=== PATIENT | female | born 1980 | race Caucasian/White ===

== ENCOUNTER → 2016-11-26 | Outpatient (CLI) | payer MEDICAID, OTHER ==
[~2016-11-26] MED LIST: ALBU17IN INH; FLAG500T PO; IBUPOTC PO; LEVA500T PO; TYLE325T5 PO
[2016-11-26 10:38] LABS: BASO # 0.1 K/mm3 (0.0-0.2); BASO % 0.9 % (0.0-1.0); EOS # 0.3 K/mm3 (0.0-0.50); EOS % 3.2 % (0.0-3.0); LARGE UNSTAINED CELL # 0.1 K/mm3 (0.0-0.4); LARGE UNSTAINED CELL % 1.5 % (0.0-4.0); LYMPH # 2.9 K/mm3 (1.5-4.5); LYMPH % 31.6 % (24.0-44.0); MEAN CORPUSCULAR HEMOGLOBIN 29.6 pg (27.0-33.0); MEAN CORPUSCULAR HGB CONC 34.6 g/dl (32.0-36.5); MEAN CORPUSCULAR VOLUME 85.5 fl (80.0-96.0); MONO # 0.4 K/mm3 (0.0-0.8); MONO % 4.7 % (0.0-5.0); NEUTROPHILS # 5.3 K/mm3 (1.8-7.7); NEUTROPHILS % 58.1 % (36.0-66.0); PLATELET COUNT, AUTOMATED 265 k/mm3 (150-450); WHITE BLOOD COUNT 9.1 K/mm3 (4.0-10.0)
--- NOTE | 2016-11-26 10:50 | REP ---
Clinical: Pain. Technique: AP and frog lateral views of the right and left hip. Findings: Bilateral hips are normal and symmetric. No acute fracture or dislocation. No overt osteoarthritic degenerative changes. Impression: Normal, symmetric bilateral hip radiographs Signed by Jorge Luis Bueno MD 11/26/2016 10:42 A
[2016-11-26 11:30] LABS: ALBUMIN 3.8 GM/DL (3.2-5.2); ALBUMIN/GLOBULIN RATIO 1.23 (1.00-1.93); ALKALINE PHOSPHATASE 43 U/L (45-117); ALT/SGPT 17 U/L (12-78); ANION GAP 9 MEQ/L (8-16); AST/SGOT 13 U/L (15-37); BILIRUBIN,TOTAL 0.5 MG/DL (0.2-1.0); BLOOD UREA NITROGEN 8 MG/DL (7-18); CALCIUM LEVEL 8.7 MG/DL (8.5-10.1); CARBON DIOXIDE LEVEL 25 MEQ/L (21-32); CHLORIDE LEVEL 107 MEQ/L (98-107); CHOLESTEROL LEVEL 164 MG/DL (<200); CREATININE FOR GFR 0.63 MG/DL (0.55-1.02); GLOMERULAR FILTRATION RATE > 60.0 (>60); GLUCOSE, FASTING 94 MG/DL (70-105); POTASSIUM SERUM 4.5 MEQ/L (3.5-5.1); SODIUM LEVEL 141 MEQ/L (136-145); TOTAL PROTEIN 6.9 GM/DL (6.4-8.2); TRIGLYCERIDES LEVEL 72 MG/DL (<150)
== END ==
LOC: M LAB 10:04
PROVIDERS: ATTEND Family Medicine Addiction Medicine
DX: Z00.00 Encounter for general adult medical examination without abnormal findings (principal); M25.551 Pain in right hip; M25.552 Pain in left hip

== ENCOUNTER 2017-02-11 10:57 | Emergency (ER) | payer OTHER ==
[~2017-02-11] VITALS: Ht 149.9 cm; Wt 95.3 kg
[2017-02-11 12:13] VITALS: BP 125/81
--- NOTE | 2017-02-11 12:26 | REP ---
RIGHT FIFTH DIGIT: Four views of the right 5th digit are performed and demonstrate no fracture, dislocation or intrinsic bone disease. IMPRESSION: No fracture or dislocation. Signed by Raúl García MD 02/11/2017 04:51 P
== END 2017-02-11 12:13 | disposition home or self-care (01) ==
LOC: M ED 11:35
DX: S60.051A Contusion of right little finger without damage to nail, initial encounter (principal); W23.1XXA Caught, crushed, jammed, or pinched between stationary objects, initial encounter; Y92.019 Unspecified place in single-family (private) house as the place of occurrence of the external cause; Y93.89 Activity, other specified; Y99.9 Unspecified external cause status; J44.9 Chronic obstructive pulmonary disease, unspecified; F17.200 Nicotine dependence, unspecified, uncomplicated; Z90.49 Acquired absence of other specified parts of digestive tract; Z91.040 Latex allergy status

== ENCOUNTER → 2017-02-11 | Outpatient (CLI) | payer OTHER ==
--- NOTE | 2017-02-12 13:56 | ECGEPIP ---
Stationary ECG Study 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
== END ==
LOC: M EKG 10:36
PROVIDERS: ATTEND Family Medicine Addiction Medicine
DX: R42 Dizziness and giddiness (principal)

== ENCOUNTER 2017-02-21 09:05 | Emergency (ER) | payer OTHER ==
[~2017-02-21] VITALS: Ht 149.9 cm; Wt 95.8 kg
[~2017-02-21 09:05] MED LIST changes: +LEVA1TAB2 PO; -LEVA500T PO
[2017-02-21] MEDS ORDERED: ONDANSETRON 4MG/2ML VIAL (J2405) IV ONE (11:45)
[2017-02-21] MEDS ORDERED: NS 1,000 ML IV ONE (11:45)
[2017-02-21] MEDS ORDERED: KETOROLAC 30 MG/ML VIAL (J1885) IV ONE (11:45)
[2017-02-21 12:13] LABS: CONTROL LINE HCG INT CTR LINE PRESENT
[2017-02-21 12:15] LABS: ADD MANUAL DIFFER YES; MEAN CORPUSCULAR HEMOGLOBIN 31.1 pg (27.0-33.0); MEAN CORPUSCULAR HGB CONC 36.4 g/dl (32.0-36.5); MEAN CORPUSCULAR VOLUME 85.5 fl (80.0-96.0); PLATELET COUNT, AUTOMATED 224 k/mm3 (150-450); WHITE BLOOD COUNT 16.5 K/mm3 (4.0-10.0)
[2017-02-21 12:22] LABS: ALBUMIN 4.1 GM/DL (3.2-5.2); ALBUMIN/GLOBULIN RATIO 1.21 (1.00-1.93); ALKALINE PHOSPHATASE 46 U/L (45-117); ALT/SGPT 20 U/L (12-78); ANION GAP 7 MEQ/L (8-16); AST/SGOT 16 U/L (15-37); BILIRUBIN,DIRECT < 0.1 MG/DL (0.0-0.2); BILIRUBIN,TOTAL 0.4 MG/DL (0.2-1.0); BLOOD UREA NITROGEN 11 MG/DL (7-18); CALCIUM LEVEL 8.9 MG/DL (8.5-10.1); CARBON DIOXIDE LEVEL 25 MEQ/L (21-32); CHLORIDE LEVEL 108 MEQ/L (98-107); CREATININE FOR GFR 0.87 MG/DL (0.55-1.02); GLOMERULAR FILTRATION RATE > 60.0 (>60); GLUCOSE, FASTING 107 MG/DL (70-105); POTASSIUM SERUM 3.5 MEQ/L (3.5-5.1); SODIUM LEVEL 140 MEQ/L (136-145); TOTAL PROTEIN 7.5 GM/DL (6.4-8.2)
[2017-02-21 12:32] LABS: EOSINOPHILS 1 % (0-5)
[2017-02-21 12:33] LABS: PLATELET CLUMPS MODERATE AMT
--- NOTE | 2017-02-21 12:47 | REP ---
CT abdomen pelvis without IV and oral contrast for left flank pain. Comparison is 2014. There are no renal or ureteral calculi on the left on the right. The left renal pelvis and left ureter are mildly distended and there is a 3 ml calcification in the urinary bladder posteriorly in the midline. There is at this may have been recently passed from the left ureter. The right renal pelvis and right ureter are unremarkable. The unenhanced kidneys are otherwise unremarkable. The adrenals and abdominal aorta are unremarkable. The visualized lung sharp are unremarkable. The unenhanced hepatic parenchyma, pancreas and spleen are unremarkable. There are surgical clips in the gallbladder fossa. There is no mild bowel distension. Mesentery is unremarkable. Pelvis: The appendix is normal. There is no ascites or adenopathy. The uterus and adnexa are unremarkable. The pelvic bowel loops are unremarkable. Impression: There is a 3 mm calculus posteriorly in the urinary bladder in the midline. This calculus may have been recently passed. There is mild distension of the left renal pelvis and left ureter. Right kidney and collecting system are unremarkable. Otherwise, essentially negative CT study of the abdomen pelvis without IV contrast. Signed by Raúl Maguire MD 02/21/2017 12:38 P
[2017-02-21] MEDS ORDERED: ZOFR4TAB3 PO (12:56)
[2017-02-21 13:05] VITALS: BP 104/63
== END 2017-02-21 13:07 | disposition home or self-care (01) ==
LOC: M ED 10:15
DX: N20.1 Calculus of ureter (principal); J45.909 Unspecified asthma, uncomplicated; F43.10 Post-traumatic stress disorder, unspecified; G43.909 Migraine, unspecified, not intractable, without status migrainosus; Z87.442 Personal history of urinary calculi; Z91.040 Latex allergy status; F17.210 Nicotine dependence, cigarettes, uncomplicated

== ENCOUNTER → 2017-03-25 | Outpatient (CLI) | payer OTHER ==
[~2017-03-25] MED LIST changes: +ZOFR4TAB3 PO
--- NOTE | 2017-04-07 17:54 | HOLTMON ---
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 Underlying sinus rhythm with a rate that varied between 48 bpm at 9:13 AM and 166 bpm at 12:08 PM, averaging 88 bpm. There were 3 isolated asymptomatic PACs and one PVC. No significant bradyarrhythmia, AV block, or tachyarrhythmia. The patient reported 14 bouts of dizziness that on occasion will persist for up to 12 min. She also reported shortness of breath on one occasion. These symptoms did not correlate with any change in her underlying rhythm or rate. Electronically Signed On 04-07-2017 17:54:16 EDT by Bryn Ivan
== END ==
LOC: M EKG 10:54
PROVIDERS: ATTEND Family Medicine Addiction Medicine
DX: R42 Dizziness and giddiness (principal); G43.909 Migraine, unspecified, not intractable, without status migrainosus

== ENCOUNTER 2017-08-04 12:24 | Emergency (ER) | payer OTHER ==
[~2017-08-04] VITALS: Ht 149.9 cm; Wt 93.6 kg
[2017-08-04] MEDS ORDERED: GI COCKTAIL 50ML BTL(HYOSCYAMINE/MAALOX/LIDOCAINE VISCOUS)(1:3:1) PO ONE (13:00)
[2017-08-04] MEDS ORDERED: MORPHINE 4 MG/ML 1ML SYRINGE IV ONE (13:00)
[2017-08-04] MEDS ORDERED: ONDANSETRON 4MG/2ML VIAL (J2405) IV ONE (13:00)
[2017-08-04 13:16] LABS: BASO # 0.1 10^3/uL (0.0-0.2); BASO % 0.9 % (0.0-1.0); EOS # 0.3 10^3/uL (0.0-0.50); EOS % 3.4 % (0.0-3.0); IMMATURE GRANULOCYTE % 0.2 % (0-0); LYMPH % 35.3 % (24.0-44.0); MEAN CORPUSCULAR HGB CONC 35.4 g/dl (32.0-36.5); MEAN CORPUSCULAR VOLUME 84.8 fl (80.0-96.0); MONO # 0.5 10^3/uL (0.0-0.8); MONO % 6.1 % (0.0-5.0); NEUTROPHILS # 4.6 10^3/uL (1.8-7.7); NEUTROPHILS % 54.1 % (36.0-66.0); PLATELET COUNT, AUTOMATED 308 10^3/uL (150-450); RED CELL DISTRIBUTION WIDTH 11.9 % (11.5-14.5); WHITE BLOOD COUNT 8.5 10^3/uL (4.0-10.0)
[2017-08-04 13:32] LABS: CONTROL LINE HCG INT CTR LINE PRESENT
[2017-08-04 13:38] LABS: ALBUMIN 3.5 GM/DL (3.2-5.2); ALBUMIN/GLOBULIN RATIO 0.97 (1.00-1.93); ALKALINE PHOSPHATASE 32 U/L (45-117); ALT/SGPT 15 U/L (12-78); ANION GAP 7 MEQ/L (8-16); AST/SGOT 9 U/L (7-37); BILIRUBIN,DIRECT < 0.1 MG/DL (0.0-0.2); BILIRUBIN,TOTAL 0.2 MG/DL (0.2-1.0); BLOOD UREA NITROGEN 10 MG/DL (7-18); CALCIUM LEVEL 8.7 MG/DL (8.5-10.1); CARBON DIOXIDE LEVEL 24 MEQ/L (21-32); CHLORIDE LEVEL 109 MEQ/L (98-107); GLOMERULAR FILTRATION RATE > 60.0 (>60); GLUCOSE, FASTING 114 MG/DL (70-105); POTASSIUM SERUM 3.6 MEQ/L (3.5-5.1); SODIUM LEVEL 140 MEQ/L (136-145); TOTAL PROTEIN 7.1 GM/DL (6.4-8.2)
[2017-08-04] MEDS ORDERED: GASTROGRAFIN SOLUTION 30ML PO ONE (14:10)
[2017-08-04] MEDS ORDERED: GASTROGRAFIN SOLUTION 30ML (Q9963) As Ordered ONE (14:24)
--- NOTE | 2017-08-04 14:37 | REP ---
Chest x-ray: Two views. History: Shortness of breath. Comparison chest x-ray January 30, 2016. Findings: The lungs are symmetrically aerated and clear. Pleural angles are sharp. Heart size is normal. An azygos lobe is noted incidentally in the right apex again. No bony abnormality is seen. Impression: No active disease. Signed by Bharat Richards MD 08/04/2017 04:09 P
[2017-08-04] MEDS ORDERED: GASTROGRAFIN SOLUTION 30ML (Q9963) PO ONE (14:40)
[2017-08-04] MEDS ORDERED: ISOVUE-370 76% 100ML VIAL (Q9967) As Ordered ONE (15:50)
[2017-08-04 16:28] VITALS: BP 119/76
--- NOTE | 2017-08-04 16:28 | REP ---
Clinical: Acute epigastric pain. Technique: Axial contrast enhanced images from the lung bases to the pubic symphysis using oral (per protocol) and 100 ml Isovue 370 intravenous contrast material with coronal and sagittal re-formations. Comparison: 02/21/2017. Findings: Lung bases are clear. Visualized heart and pericardium normal. Liver, spleen/splenules, pancreas, bilateral adrenal glands and kidneys are normal. Prior cholecystectomy. The enteric system is without obstruction or acute inflammatory process. Pelvis demonstrates normal bladder and age-appropriate uterus/adnexa. No pelvic fluid or ascites. No free air. No intraperitoneal or retroperitoneal adenopathy. Abdominal aorta and vasculature appears normal. Surrounding musculoskeletal structures are intact. Impression: Normal contrast enhanced CT of the abdomen and pelvis. No acute abdominopelvic pathology appreciated. Signed by Jorge Luis Bueno MD 08/04/2017 04:20 P
== END 2017-08-04 16:50 | disposition home or self-care (01) ==
LOC: M ED 12:24
DX: R10.13 Epigastric pain (principal); R11.0 Nausea; R06.02 Shortness of breath; J45.909 Unspecified asthma, uncomplicated; M25.559 Pain in unspecified hip; Z87.19 Personal history of other diseases of the digestive system; Z86.14 Personal history of Methicillin resistant Staphylococcus aureus infection; Z91.040 Latex allergy status; F17.210 Nicotine dependence, cigarettes, uncomplicated
CPT/HCPCS: 71020; 74177; 80048; 80076; 83690; 84703; 85025; 93041; 96374; 96375; 99284; J2405; Q9963; Q9967

== ENCOUNTER 2018-08-25 11:14 | Emergency (ER) | payer OTHER ==
[~2018-08-25] VITALS: Ht 149.9 cm; Wt 96.8 kg
[~2018-08-25 11:14] MED LIST changes: +ZOFR4TAB14 PO; -ZOFR4TAB3 PO
[2018-08-25 12:07] LABS: BASO # 0.1 10^3/uL (0.0-0.2); BASO % 0.6 % (0.0-1.0); EOS # 0.2 10^3/uL (0.0-0.50); EOS % 1.6 % (0.0-3.0); HEMATOCRIT 43.8 % (36.0-47.0); HEMOGLOBIN 15.4 g/dl (12.0-15.5); LYMPH # 3.5 10^3/uL (1.5-4.5); LYMPH % 33.7 % (24.0-44.0); MEAN CORPUSCULAR HEMOGLOBIN 30.2 pg (27.0-33.0); MEAN CORPUSCULAR HGB CONC 35.2 g/dl (32.0-36.5); MEAN CORPUSCULAR VOLUME 85.9 fl (80.0-96.0); MONO # 0.7 10^3/uL (0.0-0.8); NEUTROPHILS # 5.8 10^3/uL (1.8-7.7); NEUTROPHILS % 56.7 % (36.0-66.0); PLATELET COUNT, AUTOMATED 301 10^3/uL (150-450); WHITE BLOOD COUNT 10.3 10^3/uL (4.0-10.0)
--- NOTE | 2018-08-25 12:14 | REP ---
CT Head without contrast HISTORY: Headache COMPARISON: 07/27/2014 There is no intraparenchymal hemorrhage, acute infarct, mass or midline shift. The ventricular system is normal in appearance. There is no extra cerebral collection. There is no fracture. The visualized sinuses are clear. IMPRESSION: There is no intracranial lesion. Electronically Signed by J Carlos Sierra MD 08/25/2018 12:06 P
[2018-08-25] MEDS ORDERED: ACETAMINOPHEN 325 MG TAB PO ONE (12:30)
[2018-08-25] MEDS ORDERED: ONDANSETRON 4 MG ORAL DISINTEGRATING TAB (Q0162 PER 1MG) PO ONE (12:30)
[2018-08-25] MEDS ORDERED: KETOROLAC 60 MG/2 ML VIAL (J1885) IM ONE (12:30)
[2018-08-25 12:46] LABS: BLOOD UREA NITROGEN 7 MG/DL (7-18); CALCIUM LEVEL 8.7 MG/DL (8.5-10.1); CARBON DIOXIDE LEVEL 24 MEQ/L (21-32); CHLORIDE LEVEL 107 MEQ/L (98-107); CREATININE FOR GFR 0.67 MG/DL (0.55-1.30); GLOMERULAR FILTRATION RATE > 60.0 (>60); GLUCOSE, FASTING 89 MG/DL (70-100); POTASSIUM SERUM 4.1 MEQ/L (3.5-5.1); SODIUM LEVEL 139 MEQ/L (136-145); THYROID STIMULATING HORMONE 0.952 uIU/ML (0.358-3.740)
[2018-08-25] MEDS ORDERED: ZOFR4TAB14 PO (12:55)
[2018-08-25] MEDS ORDERED: KETO10TAB PO (12:55)
[2018-08-25 13:01] VITALS: BP 91/57
== END 2018-08-25 13:29 | disposition home or self-care (01) ==
LOC: M ED 11:14
DX: R51 Headache (principal); Z72.0 Tobacco use; Z91.013 Allergy to seafood; Z91.040 Latex allergy status
CPT/HCPCS: 70450; 80048; 84443; 85025; 96372; 99283; J1885; Q0162

== ENCOUNTER 2018-09-18 11:23 | Emergency (ER) | payer OTHER ==
[~2018-09-18] VITALS: Ht 149.9 cm; Wt 44.0 kg
[~2018-09-18 11:23] MED LIST changes: +KETO10TAB PO
[2018-09-18] MEDS ORDERED: DIVA250T67 PO (11:29)
--- NOTE | 2018-09-18 13:34 | REP ---
CT Head without contrast HISTORY: Right temporal trauma COMPARISON: 08/25/2018 There is no intraparenchymal hemorrhage, acute infarct, mass or midline shift. The ventricular system is normal in appearance. There is no extra cerebral collection. There is no fracture. The visualized sinuses are clear. IMPRESSION: There is no intracranial lesion. Electronically Signed by J Carlos Sierra MD 09/18/2018 01:26 P
[2018-09-18] MEDS ORDERED: ONDA4TAB6 PO (13:50)
--- NOTE | 2018-09-18 13:56 | REP ---
MAXILLOFACIAL CT WITHOUT CONTRAST: HISTORY: Right temporal trauma. Minimal mucosal thickening is present in the left maxillary sinus. The remaining sinuses are clear. The ostiomeatal units are patent. The middle and inferior nasal turbinates are partially paradoxical. There is minimal deviation of the nasal septum to the right. A spur is present arising from the right side of the nasal septum. The cribriform plate, medial benito of the orbits and optic canals are intact. The carotid canals form a segment of the posterolateral benito of the sphenoid sinus. There is an old nasal bone fracture. IMPRESSION: Sinus mucosal thickening as described above. Electronically Signed by J Carlos Sierra MD 09/18/2018 02:03 P
[2018-09-18 13:57] VITALS: BP 113/60
== END 2018-09-18 14:01 | disposition home or self-care (01) ==
LOC: M ED 11:23
DX: S09.90XA Unspecified injury of head, initial encounter (principal); S50.11XA Contusion of right forearm, initial encounter; S50.812A Abrasion of left forearm, initial encounter; S80.12XA Contusion of left lower leg, initial encounter; W19.XXXA Unspecified fall, initial encounter; Y92.009 Unspecified place in unspecified non-institutional (private) residence as the place of occurrence of the external cause; F17.210 Nicotine dependence, cigarettes, uncomplicated

== ENCOUNTER 2018-11-13 21:56 | Emergency (ER) | payer OTHER ==
[~2018-11-13] VITALS: Ht 149.9 cm; Wt 98.2 kg
[~2018-11-13 21:56] MED LIST changes: +DIVA250T67 PO; +ONDA4TAB6 PO
[2018-11-13] MEDS ORDERED: TIZA2TA (22:06)
[2018-11-13] MEDS ORDERED: GABA-1171 (22:06)
[2018-11-13] MEDS ORDERED: FAMOTIDINE INJ 20MG/2ML VIAL (S0028) IV ONE (23:15)
[2018-11-13] MEDS ORDERED: methylPREDNISolone INJ 125 MG/2 ML VIAL (J2930) IV ONE (23:15)
[2018-11-13] MEDS ORDERED: diphenhydrAMINE INJ 50MG/ML VIAL (J1200) IV ONE (23:15)
[2018-11-14] MEDS ORDERED: FAMO20TA PO (00:52)
[2018-11-14] MEDS ORDERED: PRED20TA PO (00:52)
[2018-11-14 01:07] VITALS: BP 118/70
== END 2018-11-14 01:08 | disposition home or self-care (01) ==
LOC: M ED 21:56
DX: T78.40XA Allergy, unspecified, initial encounter (principal); J45.909 Unspecified asthma, uncomplicated; K21.9 Gastro-esophageal reflux disease without esophagitis; F17.210 Nicotine dependence, cigarettes, uncomplicated; Z91.040 Latex allergy status; Z91.013 Allergy to seafood; Z79.899 Other long term (current) drug therapy
CPT/HCPCS: 96374; 96375; 99284; J1200; J2930

== ENCOUNTER → 2018-11-17 | Outpatient (REF) | payer OTHER ==
[~2018-11-17] MED LIST changes: +FAMO20TA PO; +GABA-1171; +PRED20TA PO; +TIZA2TA
[2018-11-17 14:54] LABS: INFLUENZA A AMPLIFICATION POSITIVE (NEGATIVE); INFLUENZA B AMPLIFICATION NEGATIVE (NEGATIVE)
== END ==
LOC: M LAB REF 14:08
PROVIDERS: ATTEND Physician Assistant
DX: J11.1 Influenza due to unidentified influenza virus with other respiratory manifestations (principal)

== ENCOUNTER 2018-12-03 19:19 | Emergency (ER) | payer OTHER ==
[~2018-12-03] VITALS: Ht 149.9 cm; Wt 95.9 kg
[2018-12-03] MEDS ORDERED: diphenhydrAMINE INJ 50MG/ML VIAL (J1200) IM ONE (21:30)
[2018-12-03] MEDS ORDERED: methylPREDNISolone INJ 125 MG/2 ML VIAL (J2930) IM ONE (21:30)
[2018-12-03] MEDS ORDERED: PRED20TA PO (21:40)
[2018-12-03 21:45] VITALS: BP 130/75
== END 2018-12-03 21:55 | disposition home or self-care (01) ==
LOC: M ED 19:19
DX: L50.9 Urticaria, unspecified (principal); K21.9 Gastro-esophageal reflux disease without esophagitis; Z91.013 Allergy to seafood; Z91.040 Latex allergy status; Z79.899 Other long term (current) drug therapy
CPT/HCPCS: 96372; 99283; J1200; J2930

== ENCOUNTER 2019-03-29 12:36 | Emergency (ER) | payer MEDICAID, OTHER ==
[~2019-03-29] VITALS: Ht 149.9 cm; Wt 97.9 kg
[2019-03-29 12:36] VITALS: BP 136/89
[2019-03-29] MEDS ORDERED: ACET-683 PO (12:42)
[2019-03-29] MEDS ORDERED: CLIN150C14 PO (12:42)
[2019-03-29] MEDS ORDERED: APAP325T4 PO (12:42)
[2019-03-29] MEDS ORDERED: AUGM875T28 PO (13:27)
[2019-03-29] MEDS ORDERED: IBUP-1022 PO (13:27)
[2019-03-29] MEDS ORDERED: KETOROLAC 60 MG/2 ML VIAL (J1885) IM ONE (13:30)
== END 2019-03-29 14:09 | disposition home or self-care (01) ==
LOC: M ED 12:36
DX: K04.7 Periapical abscess without sinus (principal); K21.9 Gastro-esophageal reflux disease without esophagitis; M54.9 Dorsalgia, unspecified; Z72.0 Tobacco use; Z91.013 Allergy to seafood; Z91.040 Latex allergy status
CPT/HCPCS: 96372; 99283; J1885

== ENCOUNTER → 2019-04-04 | Outpatient (CLI) | payer MEDICAID ==
[~2019-04-04] MED LIST changes: +ACET-683 PO; +APAP325T4 PO; +AUGM875T28 PO; +CLIN150C14 PO; +IBUP-1022 PO
[2019-04-04 18:25] LABS: HEMATOCRIT 43.4 % (36.0-47.0); HEMOGLOBIN 14.7 g/dl (12.0-15.5); MEAN CORPUSCULAR HEMOGLOBIN 29.2 pg (27.0-33.0); MEAN CORPUSCULAR HGB CONC 33.9 g/dl (32.0-36.5); MEAN CORPUSCULAR VOLUME 86.3 fl (80.0-96.0); PLATELET COUNT, AUTOMATED 315 10^3/uL (150-450); RED BLOOD COUNT 5.03 10^6/uL (4.00-5.40); WHITE BLOOD COUNT 8.6 10^3/uL (4.0-10.0)
[2019-04-04 18:40] LABS: ALBUMIN 3.8 GM/DL (3.2-5.2); ALT/SGPT 21 U/L (12-78); BILIRUBIN,TOTAL 0.3 MG/DL (0.2-1.0); BLOOD UREA NITROGEN 12 MG/DL (7-18); CARBON DIOXIDE LEVEL 30 MEQ/L (21-32); CHLORIDE LEVEL 108 MEQ/L (98-107); CREATININE FOR GFR 0.63 MG/DL (0.55-1.30); GLOMERULAR FILTRATION RATE > 60.0 (>60); GLUCOSE, FASTING 86 MG/DL (70-100); POTASSIUM SERUM 4.2 MEQ/L (3.5-5.1); RHEUMATOID FACTOR QUANT < 10.0 IU/ML (<15.0); SODIUM LEVEL 141 MEQ/L (136-145); THYROGLOBULIN ANTIBODY < 15.0 U/ML (<60.0); THYROID PEROXIDASE ANTIBODY < 28.0 U/ML (<60.0); THYROID STIMULATING HORMONE 0.646 uIU/ML (0.358-3.740); THYROXINE (T4) 11.8 UG/DL (4.5-12.0); TOTAL PROTEIN 6.8 GM/DL (6.4-8.2); TOTAL T3 123.6 NG/DL (60.0-181.0)
[2019-04-04 19:47] LABS: ERYTHROCYTE SEDIMENTATION RATE 6 mm/hr (0-20)
[2019-04-10 14:07] LABS: ANTINUCLEAR ANTIBODIES DIRECT Negative (Negative); IGE RECEPTOR ABY 1 <4.8 (<10)
== END ==
LOC: M SMT 14:11
PROVIDERS: ATTEND Allergy & Immunology Allergy
DX: L50.1 Idiopathic urticaria (principal)

== ENCOUNTER → 2019-09-27 | Outpatient (REF) | payer OTHER ==
[2019-09-27 22:27] LABS: INFLUENZA A AMPLIFICATION NEGATIVE (NEGATIVE); INFLUENZA B AMPLIFICATION NEGATIVE (NEGATIVE)
== END ==
LOC: M LAB REF 15:33
PROVIDERS: ATTEND Physician Assistant
DX: R50.9 Fever, unspecified (principal)

== ENCOUNTER 2020-03-24 19:26 | Emergency (ER) | payer MEDICAID, OTHER ==
[~2020-03-24] VITALS: Ht 149.9 cm; Wt 95.3 kg
[2020-03-24 21:16] VITALS: BP 139/87
[2020-03-24 22:20] LABS: CHLAMYDIA DNA AMPLIFICATION NEGATIVE (NEGATIVE); GC DNA AMPLIFICATION POSITIVE (NEGATIVE)
[2020-03-24 23:59] LABS: CHLAMYDIA DNA AMPLIFICATION NEGATIVE (NEGATIVE); GC DNA AMPLIFICATION POSITIVE (NEGATIVE)
[2020-03-25] MEDS ORDERED: FLAG500T PO (13:10)
== END 2020-03-24 22:19 | disposition home or self-care (01) ==
LOC: M ED 19:26
DX: Z11.3 Encounter for screening for infections with a predominantly sexual mode of transmission (principal); Z91.040 Latex allergy status; Z91.013 Allergy to seafood

== ENCOUNTER 2020-03-25 12:32 | Emergency (ER) | payer OTHER ==
[~2020-03-25] VITALS: Ht 149.9 cm; Wt 94.9 kg
[2020-03-25 12:32] VITALS: BP 128/74
[2020-03-25] MEDS ORDERED: AZITHROMYCIN 250MG TABLET PO ONE (13:00)
[2020-03-25] MEDS ORDERED: LIDOCAINE 1% SDV 5ML VIAL DILUENT ONE (13:00)
[2020-03-25] MEDS ORDERED: cefTRIAXone SOD 250MG VIAL (J0696 PER 250MG) IM ONE (13:00)
[2020-03-25] MEDS ORDERED: FLAG500T PO (13:10)
== END 2020-03-25 13:17 | disposition home or self-care (01) ==
LOC: M ED 12:32
DX: N76.0 Acute vaginitis (principal); A54.9 Gonococcal infection, unspecified; K21.9 Gastro-esophageal reflux disease without esophagitis; Z91.018 Allergy to other foods; Z91.040 Latex allergy status; F17.210 Nicotine dependence, cigarettes, uncomplicated
CPT/HCPCS: 96372; 99282; J0696

== ENCOUNTER → 2021-07-09 | Outpatient (REF) | payer OTHER ==
[~2021-07-09] MED LIST changes: -CLIN150C14 PO; +CLIN150C17 PO
== END ==
LOC: M LAB REF 19:48
PROVIDERS: ATTEND Physician Assistant
DX: R05.9 Cough, unspecified (principal)

== ENCOUNTER → 2022-01-07 | Outpatient (CLI) | payer OTHER ==
[2022-01-07 12:23] LABS: BASO % 0.3 % (0.0-1.0); EOS # 0.1 10^3/uL (0.0-0.5); EOS % 0.4 % (0.0-3.0); HEMATOCRIT 44.2 % (36.0-47.0); HEMOGLOBIN 14.8 g/dl (12.0-15.5); LYMPH # 1.8 10^3/uL (1.5-5.0); LYMPH % 12.4 % (24.0-44.0); MEAN CORPUSCULAR HGB CONC 33.5 g/dl (32.0-36.5); MEAN CORPUSCULAR VOLUME 86.7 fl (80.0-96.0); MONO # 0.4 10^3/uL (0.0-0.8); MONO % 2.8 % (2.0-8.0); NEUTROPHILS # 11.8 10^3/uL (1.5-8.5); NEUTROPHILS % 83.5 % (36.0-66.0); PLATELET COUNT, AUTOMATED 333 10^3/uL (150-450); WHITE BLOOD COUNT 14.1 10^3/uL (4.0-10.0)
[2022-01-07 13:40] LABS: ALBUMIN 3.6 GM/DL (3.2-5.2); ALT/SGPT 17 U/L (12-78); BILIRUBIN,TOTAL 0.2 MG/DL (0.2-1.0); BLOOD UREA NITROGEN 7 MG/DL (7-18); CALCIUM LEVEL 9.4 MG/DL (8.5-10.1); CARBON DIOXIDE LEVEL 26 MEQ/L (21-32); CHLORIDE LEVEL 111 MEQ/L (98-107); CREATININE FOR GFR 0.62 MG/DL (0.55-1.30); FREE T4 1.01 NG/DL (0.76-1.46); GLOMERULAR FILTRATION RATE > 60.0 (>60); GLUCOSE, FASTING 89 MG/DL (70-100); POTASSIUM SERUM 4.2 MEQ/L (3.5-5.1); SODIUM LEVEL 143 MEQ/L (136-145); THYROID STIMULATING HORMONE 0.254 uIU/ML (0.358-3.740); TOTAL PROTEIN 6.7 GM/DL (6.4-8.2)
== END ==
LOC: M WUC 10:57
PROVIDERS: ATTEND Physician Assistant
DX: R21 Rash and other nonspecific skin eruption (principal)

== ENCOUNTER → 2022-09-09 | Outpatient (CLI) | payer OTHER | LOC: M WUC 15:18 | PROVIDERS: ATTEND Physician Assistant | DX: S33.5XXA Sprain of ligaments of lumbar spine, initial encounter (principal); X58.XXXA Exposure to other specified factors, initial encounter; Y92.9 Unspecified place or not applicable; Y93.9 Activity, unspecified; Y99.9 Unspecified external cause status ==

== ENCOUNTER → 2023-06-22 | Outpatient (CLI) | payer OTHER ==
[2023-06-22 17:27] LABS: BASO # 0.1 10^3/uL (0.0-0.2); BASO % 0.9 % (0.0-1.0); EOS # 0.2 10^3/uL (0.0-0.5); EOS % 1.7 % (0.0-3.0); HEMOGLOBIN 15.4 g/dl (12.0-15.5); LYMPH # 3.1 10^3/uL (1.5-5.0); LYMPH % 31.9 % (24.0-44.0); MEAN CORPUSCULAR VOLUME 88.5 fl (80.0-96.0); MONO # 0.7 10^3/uL (0.0-0.8); NEUTROPHILS # 5.6 10^3/uL (1.5-8.5); NEUTROPHILS % 58.1 % (36.0-66.0); PLATELET COUNT, AUTOMATED 275 10^3/uL (150-450); RED BLOOD COUNT 4.97 10^6/uL (4.00-5.40); WHITE BLOOD COUNT 9.7 10^3/uL (4.0-10.0)
[2023-06-22 17:57] LABS: IRON (FE) 113 UG/DL (50-170)
[2023-06-22 17:58] LABS: ALBUMIN 3.8 G/DL (3.2-5.2); ALKALINE PHOSPHATASE 35 U/L (46-116); ALT/SGPT 18 U/L (7.0-40); AST/SGOT 12 U/L (<34); BILIRUBIN,TOTAL 0.5 MG/DL (0.3-1.2); BLOOD UREA NITROGEN 11 MG/DL (9-23); CALCIUM LEVEL 9.5 MG/DL (8.5-10.1); CARBON DIOXIDE LEVEL 30 MMOL/L (20-31); CHLORIDE LEVEL 104 MMOL/L (98-107); CREATININE FOR GFR 0.63 MG/DL (0.55-1.30); GLOMERULAR FILTRATION RATE > 60.0 (>58); GLUCOSE, FASTING 72 MG/DL (60-100); PERCENT SATURATION 28.1 % (13.2-45.0); POTASSIUM SERUM 4.4 MMOL/L (3.5-5.1); SODIUM LEVEL 140 MMOL/L (136-145); TOTAL IRON BINDING CAPACITY 402 UG/DL (250-425); TOTAL PROTEIN 6.7 G/DL (5.7-8.2)
[2023-06-22 18:01] LABS: FERRITIN 22.6 NG/ML (7.3-270.7); FREE T4 0.89 NG/DL (0.89-1.76)
[2023-06-22 18:02] LABS: PROLACTIN 6.81 NG/ML; THYROID STIMULATING HORMONE 1.484 uIU/ML (0.55-4.78)
== END ==
LOC: M PLALAB 15:40
PROVIDERS: ATTEND Nurse Practitioner Family
DX: N92.1 Excessive and frequent menstruation with irregular cycle (principal); N93.0 Postcoital and contact bleeding

== ENCOUNTER → 2023-07-13 | Outpatient (CLI) | payer OTHER | LOC: M WHC 12:40 | PROVIDERS: ATTEND Nurse Practitioner Family | DX: N92.1 Excessive and frequent menstruation with irregular cycle (principal); N93.0 Postcoital and contact bleeding ==

== ENCOUNTER → 2023-10-11 | Outpatient (CLI) | payer OTHER | LOC: M WHC 10:44 | PROVIDERS: ATTEND Nurse Practitioner Family | DX: Z12.31 Encounter for screening mammogram for malignant neoplasm of breast (principal) ==

== ENCOUNTER → 2023-10-11 | Outpatient (CLI) | payer OTHER | LOC: M LAB 12:37 | PROVIDERS: ATTEND Nurse Practitioner Family | DX: Z13.71 Encounter for nonprocreative screening for genetic disease carrier status (principal); Z80.52 Family history of malignant neoplasm of bladder; Z80.3 Family history of malignant neoplasm of breast ==

== ENCOUNTER → 2024-10-09 | Outpatient (CLI) | payer OTHER ==
[~2024-10-09] MED LIST changes: +ONDA-282 PO; -ONDA4TAB6 PO
[2024-10-09 18:31] LABS: HEPATITIS B SURFACE ANTIGEN NEGATIVE (NEGATIVE)
[2024-10-09 18:44] LABS: HIV 1&2 SCREEN NEGATIVE (NEGATIVE)
[2024-10-09 18:51] LABS: Trichomonas vaginalis (AMP) NOT DETECTED (NEGATIVE)
[2024-10-09 18:51] LABS: HEPATITIS C VIRUS ABY INDEX 0.15 INDEX (<0.8)
[2024-10-09 18:52] LABS: HEPATITIS B CORE ANTIBODY IGM NEGATIVE (NEGATIVE)
[2024-10-09 19:15] LABS: GC DNA AMPLIFICATION NEGATIVE (NEGATIVE)
== END ==
LOC: M PLALAB 14:16
PROVIDERS: ATTEND Nurse Practitioner Family
DX: N73.9 Female pelvic inflammatory disease, unspecified (principal); Z11.3 Encounter for screening for infections with a predominantly sexual mode of transmission

== ENCOUNTER → 2025-06-26 | Outpatient (REF) | payer OTHER ==
[~2025-06-26] MED LIST changes: -IBUP-1022 PO; +IBUP600T42 PO
== END ==
LOC: M LAB REF 21:30
PROVIDERS: ATTEND Physician Assistant
DX: B34.9 Viral infection, unspecified (principal)

== ENCOUNTER → 2025-08-20 | Outpatient (CLI) | payer OTHER | LOC: M WHC 14:21 | PROVIDERS: ATTEND Nurse Practitioner Family | DX: Z12.31 Encounter for screening mammogram for malignant neoplasm of breast (principal) ==

== ENCOUNTER → 2025-08-20 | Outpatient (CLI) | payer OTHER ==
[2025-08-20 18:33] LABS: Trichomonas vaginalis (AMP) NOT DETECTED (NEGATIVE)
[2025-08-20 18:56] LABS: GC DNA AMPLIFICATION NEGATIVE (NEGATIVE)
== END ==
LOC: M PLALAB 15:34
PROVIDERS: ATTEND Nurse Practitioner Family
DX: N73.9 Female pelvic inflammatory disease, unspecified (principal); Z13.71 Encounter for nonprocreative screening for genetic disease carrier status; Z80.3 Family history of malignant neoplasm of breast